=== PATIENT | female | born 1975 | race Caucasian/White ===

== ENCOUNTER 2024-08-15 08:06 | Emergency (ER) | payer SELFPAY ==
[2024-08-15 08:16] LABS: Glucose - Point of Care 359 mg/dl (70-99)
[2024-08-15 08:17] VITALS: BP 168/123
[2024-08-15 08:48] VITALS: BP 168/120; BMI 23.7
--- NOTE | 2024-08-15 08:53 | ED.GENMED ---
History of Present Illness
General
Chief Complaint: Weakness
Source: patient
Time Seen by Provider: 08/15/24 08:36
History of Present Illness
History of Present Illness:
49-year-old female presents to the emergency room stating she cannot move her legs. Patient evidently was walking with a walker at a bus stop when 'her legs stopped working'. Patient states she has a history of MS, diabetes, hypertension,
pseudotumor cerebri with [employer] shunt. Pt most recently admitted to [facility] (tx there from [facility]). Pt has not been taking any of her medications. She states she lost insurance in June and therefore has not taken any of her
medications. Patient also evidently diagnosed with a urinary tract infection 3 weeks ago at [facility]. She did not get a prescription filled for the urinary tract infection. She was not admitted to the hospital. Affect somewhat bizarre. She
claims she is blind.
Phy Exam
Physical Exam
Physical Exam:
General: Awake, Alert, Oriented X3. Appears chronically ill,
Vitals: Afebrile
Head: Atraumatic
Eyes: Pupils equal, EOMI
Throat: Airway intact, no exudates
Neck: Trachea midline
Lungs: Clear and equal b/l
Heart: Regular rate, no murmurs
Abd: Soft, Nontender, No pulsatile mass
Neuro: Cranial nerves intact, muscle strength in arms normal, patient does not move lower extremities. Reflexes are intact in the patellar and Achilles reflexes bilaterally. Patient does seem to withdrawal to stimuli of the base of her foot when
it is unexpected.
Skin: Warm, dry, no rash
Extremities: pulses equal b/l, no edema
Course
Orders/Labs/Results
Orders:
Orders
08/15/24 08:39
Electrocardiogram (*1) Urgent
Reason for Study: Fatigue / Weakness
EKG- Treatment ONCE
Urinalysis Reflex To Culture Urgent
Date Specimen was Collected: 08/15/24
Time Specimen was Collected: 08:39
Test Result ONCE
08/15/24 08:45
Complete Blood Count/With Diff Urgent
Comprehensive Metabolic Panel Urgent
HCG, Serum Qualitative Screen Urgent
08/15/24 08:59
CT Head W/o Iv Contrast Urgent
Comment:
Reason For Exam: lower ext weakness
Urine Drug Abuse Screen Urgent
Date Specimen was Collected: 08/15/24
Time Specimen was Collected: 09:00
08/15/24 09:12
Lactic Acid Urgent
08/15/24 09:15
Acetaminophen [Tylenol] 1,000 mg PO NOW STA
08/15/24 09:25
Tramadol HCl [Ultram] 50 mg PO NOW STA
Abnormal Lab Results
08/15/24 08/15/24
08:14 08:45
MCH 31.1 H pg
(27.0-31.0)
Plt Count 99 L 10^3/uL
(130-400)
MPV 11.0 H fL
(7.4-10.4)
Absolute Lymphs (auto) 1.0 L 10^3/uL
(1.2-3.4)
Neutrophils % 80.5 H %
(42.2-75.2)
Lymphocytes % 13.0 L %
(20.5-51.1)
Creatinine 0.4 L mg/dL
(0.6-1.0)
Glucose 312 H mg/dl
(70-99)
AST 53 H U/L
(14-36)
Alkaline Phosphatase 161 H U/L
(38-126)
POC Glucose 359 H mg/dl
(70-99)
08/15/24 08:45
08/15/24 08:45
Vital Signs
Initial and Last Documented VS:
Initial Vital Signs
BP Pulse Ox
168/123 99
08/15/24 08:17 08/15/24 08:17
Last Documented Vital Signs
Temp Pulse Resp BP Pulse Ox
97.6 F 56 17 99/58 97
08/15/24 08:48 08/15/24 11:00 08/15/24 11:00 08/15/24 11:00 08/15/24 11:00
MDM/Problems Addressed
Differential Diagnosis Includes:
electrolyte abn, MS flare, uti,
MDM/Problems Addressed:
Patient initially came to the emergency room after being found on the side of the road stating she could not ambulate. She does have a history of MS. Workup initiated including a head CT at some blood work. Patient did not complain of pain during
my exam. We informed her we needed to exchange her Mendoza catheter for new 1 to make sure she did have a urinary tract infection causing her symptoms. She refused this until she received pain medicine. Patient was initially offered Tylenol which
she refused because she has 'OTTO'. She was then offered Ultram which she refused. Patient observed by nursing staff to have her Mendoza catheter bag in her hands and 'squirting it' on the floor. She then threatened to squirt urine on our tech
Deloris. Pt's aim quit accurate considering she describes herself as blind. Pt also moving about gurney with her legs moving well. Security and police were called by nursing staff. I attempted to discuss the situation with the patient. She now
states that she is frustrated because she was discharged from [facility] with a Mendoza catheter and she wants it out. I told her would be medically wrong for me to remove the catheter as she evidently had a catheter placed for urinary
retention and this would cause her permanent harm. It seems the patient is frustrated that she has medical needs and is homeless. Pt will be discharged as there is no evidence of unstable process requiring admission. Pt ambulated without
assitence.
*Radiology
Radiology exam reviewed: radiology read reviewed
*EKG
Heart Rate: 88
Rate: normal
Rhythm: sinus
Ischemia: non-specific ST changes
*Cvir Tech Interpretation
Rate: normal
Interpretation: normal
Rhythm: sinus
*Critical Care Note
Total Time (30-74mins, 75-104mins- exclusive of procedures): Not Applicable
ED Attending Note
-
Portions of this chart may have been created with voice recognition software.� Occasional wrong word or��sound alike� substitutions may have occurred due to the inherent limitations of voice recognition software.
Discharge Plan
Departure
Patient Disposition: Home (Routine Discharge)
Date of Disposition: 08/15/24
Time of Disposition: 11:24
Patient with high blood pressure during this ER visit?: No
Condition: Good
Discharge Problem:
Chronic indwelling Mendoza catheter, Complaints of leg weakness
Instructions: How to care for a urinary catheter
Referrals:
UNKNOWN - PT DOES,NOT KNOW [Family Provider] -
Interventions
Interventions:
*Risk Screen - Suicide Last Done: 08/15/24 08:56
*General Assessment Last Done: 08/15/24 08:48
*Neglect/Abuse Screening Last Done: 08/15/24 08:48
*ED- Fall Risk Assessment Last Done: 08/15/24 08:48
*ED COVID-19 Vaccine History Last Done: 08/15/24 08:48
*Nursing Disposition Last Done: 08/15/24 12:08
ED- Cardiac Assessment Last Done: 08/15/24 08:48
ED- Neurological Assessment Last Done: 08/15/24 08:48
ED- Pulmonary Assessment Last Done: 08/15/24 08:48
Discharge Date and Time
Discharge Date/Time: 08/15/24 12:09
Print Language: VINCENTIAN
[2024-08-15 09:01] VITALS: BP 113/62
[2024-08-15 09:05] LABS: HCG, Serum Qualitative Screen Negative
[2024-08-15 09:06] LABS: ALT (SGPT) 33 U/L (0-35); AST (SGOT) 53 U/L (14-36); Albumin 3.9 g/dl (3.5-5.0); Alkaline Phosphatase 161 U/L (38-126); Blood Urea Nitrogen 7 mg/dl (7-17); Calcium 9.4 mg/dl (8.4-10.2); Carbon Dioxide 24 mmol/L (22-30); Chloride 104 mmol/L (98-107); Estimated Creatinine Clearance 95 ml/min; Glucose 312 mg/dl (70-99); Potassium 3.6 mmol/L (3.5-5.1); Sodium 137 mmol/L (135-145); Total Bilirubin 0.6 mg/dl (0.2-1.3); Total Protein 6.9 g/dl (6.3-8.2); eGFR > 60.00
[2024-08-15 09:08] LABS: % Basophils 0.1 % (0-2); % Eosinophils 0.8 % (0-6); % Immature Granulocytes 0.4 % (0-0.5); % Monocytes 5.2 % (1.7-9.3); % Neutrophils 80.5 % (42.2-75.2); Absolute Eosinophils 0.1 10^3/uL (0-0.7); Absolute Monocytes 0.4 10^3/uL (0.1-0.6); Absolute Neutrophils 5.9 10^3/uL (1.4-6.5); Hematocrit 41.2 % (37.0-47.0); Hemoglobin 14.2 g/dL (12.0-16.0); Mean Corp Hgb Conc. 34.5 g/dL (33.0-37.0); Mean Corpuscular Hgb 31.1 pg (27.0-31.0); Mean Corpuscular Volume 90.2 fL (81.0-99.0); Nucleated Red Blood Cells % 0 %; Red Blood Cell Count 4.57 10^6/uL (4.20-5.40); Red Cell Dist. Width 14.1 % (11.5-14.5); White Blood Cell Count 7.3 10^3/uL (4.8-10.8)
[2024-08-15 09:22] LABS: Platelet Count 99 10^3/uL (130-400)
[2024-08-15 09:31] LABS: Lactic Acid 1.6 mmol/L (0.7-2.0)
[2024-08-15 09:52] VITALS: BP 110/57
[2024-08-15 10:00] VITALS: BP 98/64
[2024-08-15 11:00] VITALS: BP 99/58
--- NOTE | 2024-08-15 11:15 | EDRN ---
Patient was photographer motion picture ulloa. [facility] entered the room to see what patient needed. Patient screaming out. Patient squeezed the urine out of her Mendoza bag all over the room and threatened to throw the urine all over [facility]. Patient continued to
pull at her Mendoza catheter and continued to squeeze urine all over the room. Patient yelling out and cursing at staff. Staff instructed the patient that she cant be threatening staff and throwing urine all over the room. Patient is in the stretcher
but thrashing around all over. Patient rolling back and forth from side to side.
Police were called.
Shortly later police arrived and are bedside.
Dr. Garcia back in room to speak with patient that she is medically cleared. Per Dr. Garcia, patient is discharged. Patient yelling at Dr. Garcia.
Police in room informing the patient that she needs to leave the hospital grounds. Patient now yelling at police.
[place] RN in room speaking with patient along with police.
--- NOTE | 2024-08-15 11:33 | ED TECH ---
This PCT went into pt room after seeing call light. Pt began yelling out as this PCT was entering room. When asked what I could do for the pt she became loud and starting cursing and screaming at this PCT.
Pt yelling: 'where the f am I'
'Im in f pain and no ones doing anything about it'
'I need my f urine bag emptied'
When this PCT asked pt to stop yelling and cursing at her, pt then stated 'Im gonna spray my urine bag all over you'. This PCT then stated that security would be called if pt did such act. Pt then proceed to say 'F watch me'. Pt then sprayed
her urine bag all over the pt room, continued to curse and scream at staff. Pt flipping off staff in pt room while yelling curse words. Security and police were called for by the post anesthesia care unit nurse per Physicians [employer]ist[employer] request.
--- NOTE | 2024-08-15 11:42 | EDRN ---
Police had conversation with Patient and she agreed that if she was discharged she would leave.
IV line was removed. Patient was given her discharge information and asked to get dressed and leave. Patient states that she doesn't know what to do. I informed her that she is discharged and she needs to get dressed. Patient yelling again. Asked
the patient nicely to not yell and to just get herself dressed. Patient throwing blankets on the floor.
--- NOTE | 2024-08-15 11:50 | ED TECH ---
pt called out for pants stating hers was soaked in urine. pt provided with two sets of scrub pants.
--- NOTE | 2024-08-15 11:51 | EDRN ---
Patient is getting dressed on her own. patient walking around room.
Patient asking for paper scrubs as some of her own clothes are wet from the urine she sprayed in the room from Mendoza bag. Patient given 2 sets of paper scrubs.
--- NOTE | 2024-08-15 11:58 | ED TECH ---
pt ambulating around room without walker, packing belongings and walking in and out of bathroom with steady gait and no assistance.
--- NOTE | 2024-08-15 12:07 | EDRN ---
Patient was able to get fully dressed on her own. Patient then proceed to use her walker and walk out of the ED under her own power with a steady gait. Patient was directed to the exit by security.
[2024-08-16 08:40] LABS: Glucose - Point of Care 188 mg/dl (70-99)
== END 2024-08-15 12:09 | disposition home or self-care (01) ==
LOC: EMR 08:06
PROVIDERS: EMERGENCY PHYSICIAN Emergency Medicine
DX: R53.1 Weakness (principal); E11.9 Type 2 diabetes mellitus without complications; I10 Essential (primary) hypertension; G35 Multiple sclerosis; Z59.71 Insufficient health insurance coverage; R46.89 Other symptoms and signs involving appearance and behavior; Z91.148 Patient's other noncompliance with medication regimen for other reason; Z87.440 Personal history of urinary (tract) infections; Z59.00 Homelessness unspecified; Z96.0 Presence of urogenital implants; Z98.2 Presence of cerebrospinal fluid drainage device
CPT/HCPCS: 99284; 70450; 80053; 82962; 83605; 84703; 85025; 93005

== ENCOUNTER 2024-08-15 18:37 | Emergency (ER) | payer MEDICAID, SELFPAY ==
[2024-08-15 18:40] VITALS: BP 134/78
--- NOTE | 2024-08-15 20:06 | ED.GENMED ---
History of Present Illness
General
Chief Complaint: Urinary Symptoms
Source: patient and records
Exam Limitations: none
Time Seen by Provider: 08/15/24 19:47
Nursing documentation reviewed up to this point in time: agreed with
History of Present Illness
History of Present Illness:
49-year-old female returns to the ER for second time today. Patient was here earlier today complaining of weakness in her legs and after medical screening exam showed no emergent pathology prior to discharge she was squirting urine from her Mendoza
catheter bag at one of our ED techs she was escorted out of the emergency room. She says that her lower abdominal pain has been chronic since she had Mendoza catheter placed a month ago at [place] denies any acute change. When I asked her why she
decided to come back to the emergency room this evening she says that she came back because she is cold.
Review of Systems
Review of Systems
All Other Systems: ROS reviewed and negative except as documented in HPI and ROS
Respiratory: Denies trouble breathing
Cardiac: Denies chest pain
ABD/GI: Reports abdominal pain; Denies vomiting
Phy Exam
Physical Exam
Physical Exam:
General: Awake, alert, laying on stretcher with a blindfold over her eyes--she is periodically peeking out from under the blindfold at me
Head: Normocephalic, atraumatic
Throat: Airway intact, handling secretions
Neck: Trachea midline, supple without meningismus
Lungs: Breathing comfortably with no distress
Heart: Regular rate and rhythm, no murmurs, gallops, or rubs
Abd: Soft, non distended, mild suprapubic tenderness
: Mendoza catheter in place
Neuro: No gross deficits
Extremities: Warm and well-perfused, moving all extremities equally
Scores
Heart Failure Risk
Heart Failure Risk Score: Not Applicable
Heart Score for Chest Pain Patients
STEMI patient?: Not applicable
Withdrawal Assessment of Alcohol
Withdrawal Assessment Completed?: Not applicable
Course
Orders/Labs/Results
Orders:
Orders
08/15/24 20:15
Urinalysis Reflex To Culture Urgent
08/15/24 20:16
Cefdinir [Omnicef] 300 mg PO NOW STA
08/15/24 20:17
Mendoza Placement- Treatment ONCE
Reason for insertion: Chronic Mendoza on Admit
08/15/24 20:26
Lidocaine 2% [Lidocaine Uro-Jet 2%] 1 syringe .ROUTE .[facility]
08/15/24 20:54
Case Management Consult ONCE
Case Management Consult: Other
Comment: homeless, blind, 'can't take care of myself'
08/15/24 20:02
08/15/24 20:02
Vital Signs
Initial and Last Documented VS:
Initial Vital Signs
Temp Pulse Resp BP Pulse Ox
37.2 C 88 16 134/78 100
08/15/24 18:40 08/15/24 18:40 08/15/24 18:40 08/15/24 18:40 08/15/24 18:40
Last Documented Vital Signs
Temp Pulse Resp BP Pulse Ox
37.2 C 88 16 134/78 100
08/15/24 18:40 08/15/24 18:40 08/15/24 18:40 08/15/24 18:40 08/15/24 18:40
MDM/Problems Addressed
Differential Diagnosis Includes:
UTI, bladder spasm/catheter related plan, urinary retention
MDM/Problems Addressed:
49-year-old female with chronic Mendoza catheter presents for the second time this evening. Her only complaint at this point is that she has lower abdominal pain which she says is chronic and related to her Mendoza catheter. She denies any acute
change. She says that she is here because it was really cold outside and unfortunately is homeless. She had lab work drawn earlier today which I reviewed: CBC no clinically significant abnormalities, chemistry shows hyperglycemia but no DKA, no
renal function abnormalities. hCG negative. Unfortunately patient declined Mendoza catheter exchanged earlier in the day in order to get a clean urine sample. She indicated that she will allow us to exchange this evening. Given that she is having
some suprapubic pain reasonable to cover empirically for urinary tract infection as she is at risk with chronic Mendoza catheter. Will send specimen after catheter exchange. Medically stable for discharge, provided information for [facility].
Tonight note: After [facility] shelters in past curfew for typical shelters. I spoke to the patient's mother who called she is [facility] [place] [facility] and cannot help her daughter. She asked that we have upholstery cleaner speak with daughter to try and
help her get plugged in with a long-term and further resources. Patient also requesting this. Will monitor in the ER tonight pending case management consultation in the morning. Advised patient that further acts of aggression towards staff would
result in her being removed from the emergency room.
Patient changed her mind and says that she now wishes to be discharged because she has a ride from someone to stay somewhere for the night. Will be discharged.
When patient's ride arrived she became agitated and then refused to leave with this person. She says she wants to stay here in the emergency room. She still wants to talk to case management. She apparently made some vague mention that she would
' before she leaves the stretcher.' Nurse contacted crisis but patient not suicidal. Will continue to monitor overnight pending case management consult.
*Pulse Oximetry
Patient hypoxic: no
*Critical Care Note
Total Time (30-74mins, 75-104mins- exclusive of procedures): Not Applicable
Data Reviewed
Source: patient and records
Patient Management
Social determinants of health affecting care: Living situation and Financial situation
ED Attending Note
-
Portions of this chart may have been created with voice recognition software.� Occasional wrong word or��sound alike� substitutions may have occurred due to the inherent limitations of voice recognition software.
Discharge Plan
Departure
Patient Disposition: Home (Routine Discharge)
Date of Disposition: 08/15/24
Time of Disposition: 22:09
Patient with high blood pressure during this ER visit?: No
Discharge Problem:
Abdominal pain, UTI (urinary tract infection), Hyperglycemia
Instructions: Urinary Tract Infection, Adult (DC)
Prescriptions:
New
cefdinir 300 mg capsule
300 mg PO BID Qty: 14 0RF
Referrals:
[facility] - Call in 1-3 days for appt ([facility])
Activity Restrictions/Additional Instructions:
Thank you for visiting the Emergency Department at [facility].
1. Please schedule a follow up appointment as directed. Call first thing tomorrow morning to make an appointment.
2. If indicated, please take your medications as instructed and indicated on discharge paperwork.
3. If any of your symptoms do not improve, or persist, or become more severe within 6-12 hours, please return to the emergency department for further care.
4. Please return to the emergency department if you develop a headache, neck pain/stiffness, fever greater than 100.4F, chest pain, shortness of breath, persistent nausea, vomiting, slurred speech, difficulty walking, numbness/tingling, weakness,
signs of infection or any other symptoms that are worrisome to you.
Please call [phone] if you have any questions.
Interventions
Interventions:
*Risk Screen - Suicide Last Done: 08/15/24 18:40
*General Assessment Last Done: 08/15/24 19:13
*Neglect/Abuse Screening Last Done: 08/15/24 19:13
*ED COVID-19 Vaccine History Last Done: 08/15/24 19:13
ED-Female Genitourinary Assessment Last Done: 08/15/24 20:09
Discharge Date and Time
Print Language: KHMER
[2024-08-15] MEDS: OMNICEF 300 MG PO (20:29)
[2024-08-16 00:16] VITALS: BP 132/80
[2024-08-16 08:43] VITALS: BP 95/47
--- NOTE | 2024-08-16 09:02 | CM ---
Addendum entered by Yanna Mayorga RN 08/16/24 13:19:
MAYA spoke with Naomie Gomez, CM director regarding patient's discharge. Confirmed that LTC placement would not be an option at this time. CM spoke with ER physician and confirmed that patient can be medically discharge.
CM spoke with patient and advised that placement would not be an options. CM advised patient that we can assist with a ride to [place] or train station. CM declined patient' request to be sent to [place]. Patient is refusing to cooperate with
discharge plan.
CM updated bedside RN. Security at bedside to assist with discharge.
Addendum entered by Yanna Mayorga RN 08/16/24 11:44:
CM reviewed medical records. CM met with Jessica Rangel from [facility] who came to visit with patient. Jessica gutiérrez is asking for inpatient psychiatric placement. CM advised that crisis evaluated patient and felt that she was not appropriate for inpatient.
Jessica further requested that patient be placed. CM advised that patient does not have a skilled need and would have to be evaluate for LTC placement.
CM attempted to verify patient's insurance at this time as it's listed as self pay.
Addendum entered by Yanna Mayorga RN 08/16/24 10:26:
Patient is becoming increasingly agitated and yelling at staff. CM left message for [employer] to secure housing.
Addendum entered by Yanna Mayorga RN 08/16/24 09:46:
CM referred patient [facility].
Original Note:
CM met with patient in room. Patient confirmed that she has been in the [facility] since . Patient had an extended stay at [facility] and was discharged to the [facility]. Patient is now in [facility] seeking
assistance with housing. Patient's mother is currently at [facility] rehab and patient stated that she has dementia. Patient stated that the person that attempted to pick patient up was a stranger and she did not want to go with him.
CM called [employer] to help secure housing assistance for patient. CM will await call back.
[2024-08-16] MEDS: TYLENOL 650 MG PO (09:55)
[2024-08-16] MEDS: OMNICEF 300 MG PO (09:57)
== END 2024-08-16 13:31 | disposition home or self-care (01) ==
LOC: EMR 18:37
PROVIDERS: EMERGENCY PHYSICIAN Emergency Medicine
DX: N39.0 Urinary tract infection, site not specified (principal); R73.9 Hyperglycemia, unspecified; G89.29 Other chronic pain; R10.30 Lower abdominal pain, unspecified; Z59.00 Homelessness unspecified
CPT/HCPCS: 99283